=== PATIENT | male | born 1970 | race Caucasian/White ===

== ENCOUNTER 2024-05-09 10:44 | Day surgery (SDC) | payer BC ==
[2024-05-09 08:25] LABS: Absolute Basophils 0.1 K/uL (0-0.5); Absolute Eosinophils 0.2 K/uL (0-0.5); Absolute Lymphocytes (CBC) 1.8 K/uL (0.7-4.9); Absolute Monocytes 0.8 K/uL (0.1-1.3); Absolute Neutrophil 5.9 K/uL (1.8-8.0); Basophils % 0.7 % (0-1.3); Eosinophils % 2.5 % (0-4.4); Hematocrit 43.9 % (39.6-49.0); Hemoglobin 15.1 g/dL (13.6-17.9); Lymphocytes % 20.3 % (15.3-44.8); MCH 31.3 pg (27.0-35.0); MCHC 34.3 g/dL (32.0-36.0); MCV 91.2 fL (80-100); MPV 6.1 fL (7.6-11.3); Monocytes % 9.4 % (3.3-12.3); Neutrophils % 67.1 % (41.7-73.7); Platelets 297 thou/uL (152-406); RBC Red Blood Cell Count 4.82 M/uL (4.33-5.43); Red Cell Distribution Width 15.4 % (12.1-15.2)
[2024-05-09 08:32] LABS: Anion Gap 9.6 mEq/L (5.0-15.0); Bicarbonate 27 mEq/L (21-32); Glomerular Filtration Rate 106 ml/min (=/>90); Glucose Level 113 mg/dL (74-106); Potassium 3.6 mEq/L (3.5-5.1); Sodium Level 136 mEq/L (136-145)
[2024-05-09 08:35] LABS: BUN Blood Urea Nitrogen < 3 mg/dL (7-18)
[2024-05-09] MEDS: Ringers Lactate 1,000 ML IV ONE (11:10)
[2024-05-09] MEDS ORDERED: LIDOCAINE 1% MPF 5 ML VIAL ONE (11:30)
[2024-05-09] MEDS ORDERED: propofoL 200 MG/20 ML VIAL IV ONE (11:30)
[2024-05-09 11:31] VITALS: O2SAT 100
[2024-05-09 12:25] VITALS: TEMP 97.4
--- NOTE | 2024-05-09 12:25 | EKG ---
Test Date: 2024-05-09 Test Time: 08:05:26 [employer]ler [employer]: KEVIN MEASUREMENT RESULTS: Intervals: Rate: 83 DC: 166 QRSD: 80 QT: 382 QTc: 448 [place]: P: 75 DC: 166 QRS: 70 T: 70 INTERPRETIVE STATEMENTS: Normal sinus rhythm Normal ECG No previous ECG available for comparison Electronically Signed On 05-09-24 12:24:25 CDT by Chemo Carrington
[2024-05-09 12:35] VITALS: BP 132/86
== END 2024-05-09 12:35 | disposition home or self-care (01) ==
LOC: OR 10:44
PROVIDERS: ATTEND Surgery
PROC: 0DBH8ZX Excision of Cecum, Via Natural or Artificial Opening Endoscopic, Diagnostic (ICD-10-PCS; principal; 2024-05-09 12:00)
DX: K92.1 Melena (principal); K52.9 Noninfective gastroenteritis and colitis, unspecified; K60.30 Anal fistula, unspecified; R58 Hemorrhage, not elsewhere classified; K57.30 Diverticulosis of large intestine without perforation or abscess without bleeding; K64.8 Other hemorrhoids; D37.8 Neoplasm of uncertain behavior of other specified digestive organs; Z83.79 Family history of other diseases of the digestive system
CPT/HCPCS: 45380; 93005; 85025; 80048; 36415; 88305; J2704; J2001; J7120

== ENCOUNTER 2024-06-02 10:31 | Day surgery (SDC) | payer BC ==
[2024-06-02] MEDS: Ringers Lactate 1,000 ML IV ONE (10:45)
[2024-06-02] MEDS ORDERED: propofoL 200 MG/20 ML VIAL IV ONE ×2 (12:11→13:41)
[2024-06-02] MEDS ORDERED: LIDOCAINE 2% MPF 5 ML VIAL ONE (12:11)
[2024-06-02] MEDS ORDERED: ONDANSETRON 4 MG/2 ML VIAL ONE (12:11)
[2024-06-02] MEDS ORDERED: MIDAZOLAM HCL 2 MG/2 ML INJ ONE (12:12)
[2024-06-02] MEDS ORDERED: FENTANYL CITR 100 MCG/2 ML ONE ×3 (12:12→13:53)
[2024-06-02] MEDS: LIDOCAINE HCL/EPINEPHRINE 20 ML MDV ONE (12:41)
[2024-06-02] MEDS: CEFOXITIN SODIUM 2 GM/VIAL ONE (12:41)
[2024-06-02] MEDS: METHYLENE BLUE 1% 10 ML VIAL ONE (13:33)
[2024-06-02] MEDS ORDERED: ROCURONIUM 50 MG/5 ML VIAL IV ONE (13:42)
[2024-06-02] MEDS: LIDOCAINE JELLY 2% 5 ML SYRINGE TOP ONE (13:46)
--- NOTE | 2024-06-02 14:13 | P.OP ---
Preoperative diagnosis: Anal Lesion / Perianal fistula Postoperative diagnosis: Anal Lesion / Perianal fistula Primary procedure: Exam under anesthesia Secondary procedure: Biopsy of Anal Lesion Other procedure(s): Placement of Seton Anesthesia: GETA Estimated blood loss: <5cc Specimen: Anal Lesion Findings: Perianal Fistula from 7oclock glut to 6 oclock anus Complications: None Drain(s): Other (Seton) Transferred to: Recovery Room Condition: Good
[2024-06-02] MEDS: FENTANYL CITR 100 MCG/2 ML ONE (14:30)
[2024-06-02] MEDS: HYDROCODONE/APAP 10/325 TAB ONE (15:10)
[2024-06-02 15:27] VITALS: TEMP 97.7
[2024-06-02 15:35] VITALS: BP 151/96; O2SAT 100
--- NOTE | 2024-06-03 01:18 | OP ---
Date of Procedure: 06/02/2024 Surgeon: Chandana Oshea MD, Preoperative Diagnosis: Anal lesion/perianal fistula. Postoperative Diagnosis: Anal lesion/perianal fistula. Procedures: 1.Exam under anesthesia. 2.Biopsy of anal lesion. 3.Placement of seton. Anesthesia: General endotracheal. Estimated Blood Loss: Less than 5 mL. Specimen: Anal lesion. Findings: Perianal fistula from 7 o'clock gluteal region to 6 o'clock anal lesion. Complications: None. Drains: Seton. Disposition: The patient was transferred to the recovery room in good condition. Procedure In Detail: After informed consent was obtained, the patient was brought to the operating r oom, prepped and draped in the usual sterile fashion. After adequate anesthesia was achieved, I perf ormed sequential examination and anoscopy with sequentially larger anoscopes until ultimately I noted a lesion at the posterior approximately 6 o'clock position while the patient remained in a lithotomy position. There was an ellipse of skin here, which was firm and fixed. I ultimately removed this u sing Metzenbaum scissors and sent off for pathologic examination. Hemostasis was achieved with minim al electrocautery in this area. I then injected methylene blue into the perianal small fistulous-monique earing tract at the gluteus approximately 5-6 cm away from the anal vault at the 7 o'clock position o n the gluteus. The methylene blue was then noted to be emanating from near the anoderm anal mucosa m argin where a fistulous tract was appreciated. Palpation of the tract noted methylene blue to be kenney nating from this area, approximately 0.5 cm from the anal orifice. At this point, I performed an exa mination using small lacrimal probes ultimately passing it through the tract and I placed a seton thr ough this area at this point, I then irrigated the area copiously, left the seton place and secured i t with 2 interrupted 0 silk sutures and the anus was irrigated once again. No additional lesions wer e appreciated. No hemorrhoidectomy was necessary at this point, as the hemorrhoids were all small an d non-pathologic by appearance. I then placed a Gel-Foam soaked in lidocaine jelly into the anal can al and sterile dressing was then placed over top. The patient tolerated the procedure without incide nt or complication, transferred to PACU in good condition. All counts were correct at the end of the case. FAVIAN/JANICE Voice ID: [id number] Report ID: [id number]
== END 2024-06-02 15:31 | disposition home or self-care (01) ==
LOC: OR 10:31
PROVIDERS: ATTEND Surgery
PROC: 0DJD8ZZ Inspection of Lower Intestinal Tract, Via Natural or Artificial Opening Endoscopic (ICD-10-PCS; 2024-06-02)
PROC: 0DH Gastrointestinal System, Insertion (ICD-10-PCS; principal; 2024-06-02 12:00)
DX: K60.30 Anal fistula, unspecified (principal); K62.0 Anal polyp; K64.8 Other hemorrhoids
CPT/HCPCS: 88305; 46020; 46615; J2704 ×2; J2003; J2250; J3010 ×4; J0694; J2405; J7120; 88304